=== PATIENT | male | born 1970 | race Caucasian/White ===

== ENCOUNTER 2025-01-04 21:26 | Emergency (ER) | payer SELFPAY ==
[~2025-01-04 21:26] MED LIST: Iopamidol 370 76% 100 ML VIAL ONE
[2025-01-04] MEDS ORDERED: Ondansetron ODT 4 MG TAB ONE (21:48)
[2025-01-04] MEDS ORDERED: Sodium Chloride 0.9% 1,000 ML ONE ×2 (21:53→23:35)
[2025-01-04] MEDS ORDERED: Ondansetron PF 4 MG/2 ML Vial ONE (22:30)
[2025-01-04 22:58] LABS: Band 2 % (5-11); Hematocrit 46.5 % (42.0-52.0); Hemoglobin 14.7 g/dL (14.0-18.0); Lymphocytes 4 % (21-51); MDiff Complete? YES; Mean Corpuscular HGB CONC 31.6 g/dL (32.0-36.0); Mean Corpuscular Hemoglobin 27.1 pg (27.0-31.0); Mean Corpuscular Volume 85.8 fl (78.0-98.0); Monocytes 4 % (0-10); Neutrophil 90 % (42-75); Platelet Count 250 10x3/uL (130-400); RBC Distribution Width 13.7 % (11.5-14.5); Red Blood Cell (RBC) Count 5.42 mill/uL (4.70-6.10); White Blood Cell (WBC) Count 14.9 10x3/uL (4.8-10.8)
[2025-01-04 23:04] LABS: Bilirubin Negative (Negative); Blood, Urine Negative (Negative); Clarity Clear (Clear); Glucose, Urine (Dipstick) Negative (Negative); Ketone, Urine Negative (Negative); Leukocyte Small (Negative); Nitrite Negative (Negative); Protein, Urine (Dipstick) Negative (Neg-Trace); Specific Gravity, Urine 1.025 (1.005-1.030); Urobilinogen 0.2 mg/dL (Less than 2); pH, Urine 5.5 (5.0-9.0)
[2025-01-04 23:05] LABS: Base Excess-Venous -3.2 mmol/L (-2.0 to 3.0); CO2 Tension (PvCO2) 34.8 mmHg (42.0-51.0); Calcium, Ionized 1.08 mmol/L (1.15-1.33); Chloride 108 mmol/L (98-107); Hemoglobin - Calc 16.8 g/dL (14.0-18.0); Potassium 4.2 mmol/L (3.5-5.1); Sodium 143 mmol/L (138-145); T. Carbon Dioxide 22.1 mmol/L (22.0-28.0); vO2 Saturation-calc 99.2 % (60.0-85.0)
[2025-01-04] MEDS ORDERED: Acetaminophen 500 MG TAB ONE (23:06)
[2025-01-04 23:07] LABS: Bacteria/HPF Rare-Few HPF (None Seen); CAUTI Indications for Culture Alt mental st,lethar; RBC/HPF 0-3 HPF (0-3); Squamous Epithelial 0-3 HPF (0-3); WBC/HPF 0-3 HPF (0-3)
[2025-01-04 23:08] LABS: Urine Culture Reflex No No
[2025-01-04 23:09] LABS: ALT (SGPT) 15 U/L (Less than 45); AST (SGOT) 15 U/L (11-34); Albumin 3.4 g/dL (3.1-4.5); Alkaline Phosphatase 77 U/L (40-110); Anion Gap 13 mmol/L (10-20); BUN (Urea Nitrogen) 16 mg/dL (8.4-25.7); Bilirubin, Total 0.6 mg/dL (0.3-1.2); Calc. Creatinine Clearance 0 mL/min (70-130); Calcium 8.3 mg/dL (7.8-10.44); Carbon Dioxide 19 mmol/L (22-29); Chloride 110 mmol/L (98-107); Estimated GFR 81; Globulin 3.9 g/dL (2.4-3.5); Glucose 138 mg/dL (70-105); Lipase 62 U/L (8-78); Magnesium 1.9 mg/dL (1.6-2.6); Potassium 4.2 mmol/L (3.5-5.1); Protein, Total 7.3 g/dL (6.0-8.3); Sodium 138 mmol/L (136-145); Troponin I Less than 0.010 ng/mL (< 0.028)
[2025-01-04] MEDS ORDERED: Acetaminophen 160 MG (5 ML) UDCUP ONE (23:11)
[2025-01-04 23:14] LABS: Amphetamine Not Detected (NotDetected); Barbiturates Screen Not Detected (NotDetected); Benzodiazepine Screen Not Detected (NotDetected); Cocaine Metabolite Screen Not Detected (NotDetected); Methadone Not Detected (NotDetected); Methamphetamine Not Detected (NotDetected); Opiate Screen Not Detected (NotDetected); Oxycodone Screen Not Detected (NotDetected); Phencyclidine (PCP) Not Detected (NotDetected); THC/Cannabinoid Screen Not Detected (NotDetected); Tricyclic Screen Not Detected (NotDetected)
[2025-01-04 23:17] LABS: Acetaminophen Less than 10 mcg/mL (Less than 10); Alcohol Less than 10.0 mg/dL (Less than 10); Salicylate Less than 8.0 mg/dL (Less than 8.0)
[2025-01-04] MEDS ORDERED: Promethazine HCl 25 MG/ML VIAL ONE (23:35)
[2025-01-05] MEDS ORDERED: Piperacillin/Tazobactam 3.375 GM VIAL ONE ×2 (01:19→07:28)
[2025-01-05] MEDS ORDERED: Promethazine HCl 25 MG/ML VIAL ONE ×2 (01:26→07:56)
[2025-01-05] MEDS ORDERED: Lactated Ringer's 1,000 ML ONE ×2 (01:26→07:28)
[2025-01-05] MEDS ORDERED: Sodium Chloride 0.9% 100 ML ONE ×2 (01:26→07:28)
[2025-01-05] MEDS ORDERED: Morphine 4 MG/ML VIAL ONE (07:56)
[2025-01-05] MEDS ORDERED: Acetaminophen 500 MG TAB ONE (08:48)
[2025-01-05 15:07] LABS: Campy jejuni + coli by PCR Negative (Negative); STEC Shiga Toxin 1+2 Negative (Negative); Salmonella spp. by PCR Negative (Negative); Shigella spp + EIEC by PCR Negative (Negative)
== END 2025-01-05 10:09 | disposition short-term general hospital (02) ==
LOC: MADERS 21:26
DX: K52.9 Noninfective gastroenteritis and colitis, unspecified (principal); I10 Essential (primary) hypertension
CPT/HCPCS: 36415; 71046; 74177; 80053; 80306; 80307; 81001; 82330; 82435; 82803; 83605; 83690; 83735; 84132; 84295; 84484; 85014; 85025; 87505; 96361; 96365; 96375; 96376; J2270; J2405; J2543; J2550; J7030; J7120; Q0162; Q9967